=== PATIENT | male | born 1985 | race African-American/Black ===

== ENCOUNTER 2017-07-02 13:31 | Inpatient (IN) | payer OTHER, SELFPAY ==
[2017-07-02 14:51] LABS: Hematocrit 36.4 % (42.0-52.0); Red Blood Cell (RBC) Count 4.75 mill/uL (4.70-6.10); White Blood Cell (WBC) Count 8.5 thou/uL (4.8-10.8)
[2017-07-02 14:52] LABS: Prothrombin Time 20.6 SEC (12.0-14.7)
[2017-07-02 14:53] LABS: PTT 50.3 SEC (22.9-36.1)
--- NOTE | 2017-07-02 15:00 | RAD ---
RADIOGRAPH CHEST 1 VIEW: Date: 07-02-17 Time: 1:26 p.m. HISTORY: 29-year-old male with altered mental status. COMPARISON: No prior study currently available on [employer] P[facility]. FINDINGS: Cardiomediastinal silhouette is normal. No evidence of pneumothorax, pulmonary edema or effacement o f lateral costophrenic angles. Small, ill-defined faint region of mildly increased density at the ri ght lower lung zone medially. IMPRESSION: 1. Faint, ill-defined small opacity at the right medial lower lung field. Uncertain whether this a p ulmonary lesion or artifact. Recommend follow up with upright PA and lateral views when patient's co ndition allows. 2. No other potential pathology identified. HERBERT POS: [facility]
[2017-07-02 15:04] LABS: ALT (SGPT) 77 U/L (8-55); AST (SGOT) 174 U/L (5-34); Alkaline Phosphatase 65 U/L (40-150); Anion Gap 12 mmol/L (10-20); BUN (Urea Nitrogen) 52 mg/dL (8.9-20.6); CK (CPK) 1877 U/L (30-200); Calc. Creatinine Clearance 0 mL/min (70-130); Calcium 7.4 mg/dL (7.8-10.44); Carbon Dioxide 18 mmol/L (22-29); Chloride 105 mmol/L (98-107); Estimated GFR-MDRD 35; Globulin 4.7 g/dL (2.4-3.5); Protein, Total 7.7 g/dL (6.0-8.3)
[2017-07-02 15:08] LABS: Troponin I 0.049 ng/mL (< 0.028)
--- NOTE | 2017-07-02 15:10 | CT ---
CT BRAIN NONCONTRAST: HISTORY: 29-year-old male with altered mental status. FINDINGS: There is no midline shift or any other mass effect. There is no evidence of acute intracranial hemo rrhage, large cortical infarct, obstructive hydrocephalus, or extraaxial fluid collection. The calv arium is intact. Almost all of the right mastoid air cells, and the entire right mastoid antrum are opacified. There is significant partial opacification of the right middle ear cavity. IMPRESSION: 1. No acute intracranial findings. 2. Severe partial opacification of the right tympanomastoid cavity. Clinical correlation is recommen dedIván christiansen POS: [facility]
[2017-07-02 15:15] LABS: Anisocytosis SLIGHT = 6-15 cells (100X) (0-5/hpf); Band 20 % (5-11); Hypochromia SLIGHT = 6-15 cells (100X) (0-5/hpf); Mean Platelet Volume 8.7 fL (7.4-10.4); Microcytosis SLIGHT = 6-15 cells (100X) (0-5/hpf); Neutrophil 60 % (42-75); Reactive Lymphocytes 1 % (0-10)
[2017-07-02 15:16] LABS: Vacuoles SLIGHT
[2017-07-02 15:39] LABS: Bilirubin Negative (Negative); Blood, Urine Large (Negative); Glucose, Urine (Dipstick) Negative (Negative); Ketone, Urine Trace mg/dL (Negative); Nitrite Negative (Negative); Protein, Urine (Dipstick) 100 mg/dL (Neg-Trace); Urobilinogen 0.2 mg/dL (0.2-1.0)
[2017-07-02 15:41] LABS: RBC/HPF 0-3 HPF (0-3)
[2017-07-02 15:50] LABS: Bacteria/HPF 2+ HPF (None Seen); Hyaline Casts/LPF 7-10 HYALINE CAST LPF (0-3 Hyaline); Renal Epithelial None Seen HPF (0-3); Transitional Epithelial 0-3 HPF (0-3); Yeast-All Forms None Seen HPF (None Seen)
[2017-07-02] MEDS ORDERED: cefTRIAXone\\ROCEPHIN 2 GM VIAL ONE (16:31)
[2017-07-02 16:40] LABS: Amphetamine Not Detected (NotDetected); Methadone Not Detected (NotDetected); Methamphetamine Not Detected (NotDetected)
[2017-07-02] MEDS ORDERED: VANCOMYCIN IVPB PRN (16:53)
[2017-07-02] MEDS ORDERED: ACYCLOVIR IVPB PRN (16:53)
[2017-07-02 16:57] LABS: CSF, Glucose 62 mg/dl (40-70)
[2017-07-02] MEDS ORDERED: Sodium Chloride 0.9% 1,000 ML IV SCH (17:00)
--- NOTE | 2017-07-02 17:02 | PDOC.EVN ---
Event Note - Event Note Event Note: H&P: 869250 AMS 2/2 Severe Sepsis (fever, tachycardia, hypotension) * suspect meningitis * LP * Urine cx * Blood cxs; * Vanco, CTX, Acyclovir * CT brain: no intracranial abnormalities * CXR: no PNA * check CT a/p (without contrast, given RADHA) * Fall precautions * check labs in AM RADHA 2/2 Rhabdomyolysis and hypotension * start IVFs * avoid nephrotoxic agents * check renal labs in AM Demand ischemia 2/2 severe sepsis * trend cardiac enzymes * check ECHO Admit to ICU.
[2017-07-02] MEDS ORDERED: Ondansetron HCl/PF 4 MG/2 ML Vial IVP PRN (17:03)
[2017-07-02] MEDS ORDERED: Pepto Bismol Chew TAB PO PRN (17:03)
[2017-07-02 17:25] LABS: Number Cells Counted-Fluids 100
[2017-07-02] MEDS ORDERED: Vancomycin HCl 1.5 GM in Sodium Chloride 0.9% 250 ML 300 ML IVPB SCH (17:45)
[2017-07-02] MEDS ORDERED: Acyclovir Sodium 800 MG in Sodium Chloride 0.9% 250 ML 250 ML IVPB SCH (17:45)
[2017-07-02 18:16] LABS: Troponin I 0.048 ng/mL (< 0.028)
--- NOTE | 2017-07-02 18:19 | CT ---
CT ABDOMEN AND PELVIS WITHOUT CONTRAST: 07/02/17 HISTORY: Fever of unknown origin. FINDINGS: Absence of oral and IV contrast reduces the sensitivity of the exam, particularly for the evaluation of solid organs and bowel. The lung bases are clear. No free air or free fluid is seen in the abdom en or pelvis. No calcified gallstones are seen. A normal appearing appendix is noted. No calculi is seen in the kidneys, ureters, or the urinary bladder. No hydroureteronephrosis noted on either side. There is fluid in the loops of small and large bowel. The small bowel loops are not abnormally dila bill. No acute osseous abnormalities are seen. IMPRESSION: No CT evidence of urinary tract calculi or obstruction. Fluid in the small and large bowel may be du e to enteritis/colitis. POS: [facility]
[2017-07-02 18:42] VITALS: BMI 26.9
[2017-07-02] MEDS: Sodium Chloride 0.9% 1,000 ML IV SCH (19:44)
--- NOTE | 2017-07-02 20:15 | HP ---
DATE OF ADMISSION: 07/02/2017 at 5:11 p.m. CHIEF COMPLAINT: Altered mental status. HISTORY OF PRESENT ILLNESS: This is a 29-year-old male who presents with a one and half day history of altered mental status per his family. He has also had a fever at home; however, they did not us e a thermometer to check his temperature. There were also reports of vomiting, which the patient ad mitted to. Apparently, his mental status is beginning to clear since he came to the emergency room. He denies any sick contacts with similar symptoms. He denies any urinary symptoms. Also denies a ny chest pain, shortness of breath or blurry vision. He does report some neck pain that occurs with vertical and horizontal movements. REVIEW OF SYSTEMS: A 14-point review of systems is negative except as otherwise indicated above in the HPI. PAST MEDICAL HISTORY: Patient denies any past medical history. PAST SURGICAL HISTORY: No recent surgeries. FAMILY HISTORY: Reviewed and noncontributory to the presenting illness. SOCIAL HISTORY: The patient denied any tobacco, alcohol or illicit drug use. ALLERGIES TO MEDICATIONS: Reviewed. Please refer to chart for details. PHYSICAL EXAMINATION: VITAL SIGNS: Reviewed, please refer to chart for details. GENERAL: Patient was sitting comfortably in bed when I entered the room, in no acute distress, acco mpanied by 2 family members at the bedside. HEENT: Normocephalic, atraumatic. NECK: Supple, no rigidity. He does complain of some pain with passive motion vertically and horizo ntally. Extraocular movements are intact. Cranial nerves II-XII are grossly intact. CARDIOVASCULAR: S1 and S2 audible. Regular rate and rhythm. LUNGS: Clear to auscultation bilaterally with no wheezes, rales or rhonchi. ABDOMEN: Soft, nontender with positive bowel sounds. No guarding, rebound or rigidity. GENITOURINARY: No CVA tenderness bilaterally. No suprapubic tenderness either. MUSCULOSKELETAL: No calf tenderness bilaterally. EXTREMITIES: No clubbing or cyanosis of the extremities. PSYCHIATRIC: Appropriate and cooperative. NEUROLOGIC: Alert and oriented x3. Currently, he is answering questions appropriately. SKIN: Warm, dry with dry mucous membranes. LABORATORY DATA AND IMAGING: Reviewed. Please refer to chart for details. ASSESSMENT AND PLAN: This is a 29-year-old male presenting with altered mental status. 1. Altered mental status secondary to sepsis with fever, tachycardia, and hypotension. I do suspec t meningitis, LP has been ordered with samples sent. We will check urine culture and blood cultures . Start vancomycin, ceftriaxone, and acyclovir. Chest x-ray was negative for pneumonia. CT of the head does not reveal any intracranial abnormalities. I will order CT of the abdomen and pelvis wit hout contrast given acute kidney injury. We will start fall precautions and check labs in the [facility]. 2. Acute kidney injury secondary to rhabdomyolysis and hypotension. Start IV fluids, avoid nephrot oxic agents and check renal labs in the morning. 3. Demand ischemia secondary to severe sepsis. Trend cardiac enzymes and check an echocardiogram. We will admit to ICU.
[2017-07-02] MEDS: Acetaminophen 325 MG TAB PO PRN (20:48)
[2017-07-02] MEDS ORDERED: Vancomycin HCl 1 GM in Premix Bag 1 BAG IVPB SCH (21:00)
[2017-07-03 01:30] LABS: Troponin I 0.041 ng/mL (< 0.028)
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
[2017-07-03] MEDS: Sodium Chloride 0.9% 1,000 ML IV SCH ×3 (03:39→19:40)
[2017-07-03] MEDS: Acyclovir Sodium 800 MG in Sodium Chloride 0.9% 250 ML 250 ML IVPB SCH ×2 (03:40→14:32)
[2017-07-03] MEDS: cefTRIAXone\\ROCEPHIN 2 GM in Sodium Chloride 0.9% 100 ML IVPB SCH ×2 (03:40→16:56)
[2017-07-03 05:15] LABS: ALT (SGPT) 206 U/L (8-55); AST (SGOT) 413 U/L (5-34); Alkaline Phosphatase 63 U/L (40-150); Bilirubin, Direct 0.5 mg/dL (0.1-0.3); Bilirubin, Total 0.8 mg/dL (0.2-1.2); Protein, Total 7.8 g/dL (6.0-8.3)
[2017-07-03 05:21] LABS: Band 17 % (5-11); Hematocrit 37.4 % (42.0-52.0); Hypochromia SLIGHT = 6-15 cells (100X) (0-5/hpf); Mean Platelet Volume 10.8 fL (7.4-10.4); Neutrophil 65 % (42-75); Red Blood Cell (RBC) Count 4.86 mill/uL (4.70-6.10); Target Cells SLIGHT = 2-5 cells (100X) (0-1/hpf); White Blood Cell (WBC) Count 5.1 thou/uL (4.8-10.8)
[2017-07-03] MEDS ORDERED: Vancomycin HCl 1.5 GM in Sodium Chloride 0.9% 250 ML 300 ML IVPB SCH (06:00)
[2017-07-03 06:56] LABS: Anion Gap 13 mmol/L (10-20); BUN (Urea Nitrogen) 38 mg/dL (8.9-20.6); CK (CPK) 2339 U/L (30-200); Calc. Creatinine Clearance 76 mL/min (70-130); Calcium 7.3 mg/dL (7.8-10.44); Carbon Dioxide 18 mmol/L (22-29); Chloride 108 mmol/L (98-107); Estimated GFR-MDRD 53
[2017-07-03] MEDS: Acetaminophen 325 MG TAB PO PRN ×2 (08:35→20:25)
--- NOTE | 2017-07-03 09:04 | PDOC.PN ---
- Subjective Encounter Start Date: 07/03/17 Encounter Start Time: 09:02 Subjective: Awake/alert -: No confusion -: No fever currently, no cp/sob - Objective MAR Reviewed: Yes Vital Signs & Weight: Vital Signs (12 hours) Temp 07/03/17 07:00 98.6 F 07/03/17 04:00 99 F 07/02/17 23:00 98.4 F 07/02/17 22:00 99.7 F H Weight Weight 204 lb 5.896 oz Most Recent Monitor Data Heart Rate from ECG 95 NIBP 133/57 NIBP BP-Mean 77 Respiration from ECG 21 SpO2 91 I&O: 07/02/17 07/03/17 07/04/17 06:59 06:59 06:59 Intake Total 1934 Output Total 1450 350 Balance 484 -350 Result Diagrams: 07/03/17 03:22 07/03/17 03:22 Phys Exam - Physical Examination Constitutional: NAD HEENT: moist MMs, sclera anicteric Neck: no nodes, no JVD Respiratory: no wheezing, no rales, no rhonchi Cardiovascular: no significant murmur Gastrointestinal: soft, non-tender, no distention, positive bowel sounds Musculoskeletal: no edema, pulses present Neurological: non-focal, moves all 4 limbs Psychiatric: normal affect, A&O x 3 Skin: no rash, normal turgor Dx/Plan (1) Pneumococcal bacteremia Code(s): R78.81 - BACTEREMIA Status: Acute (2) Altered mental state Code(s): R41.82 - ALTERED MENTAL STATUS, UNSPECIFIED Status: Acute (3) RADHA (acute kidney injury) Code(s): N17.9 - ACUTE KIDNEY FAILURE, UNSPECIFIED Status: Acute (4) Rhabdomyolysis Code(s): M62.82 - RHABDOMYOLYSIS Status: Acute - Plan AMS 2/2 Severe Sepsis (fever, tachycardia, hypotension) 2/2 Strep pneumo bacteremia * s/p LP on 07-02-17 * Urine cx: pending * Blood cxs: 2/2 strep pneumo - f/u sensitivities and consult ID , ECHO pending * Vanco, CTX, Acyclovir * CT brain: no intracranial abnormalities * CXR: no PNA * CT a/p (without contrast, given RADHA): possible enteritis/colitis * Fall precautions * check labs in AM RADHA 2/2 Rhabdomyolysis and hypotension * continue IVFs * avoid nephrotoxic agents * check renal labs and CK in AM Demand ischemia 2/2 severe sepsis * cardiac enzymes - flat evelvation/ no chest pain * ECHO to look for wall motion abnormalities: pending Dispo: Continue inpt.
[2017-07-03 17:37] LABS: Vancomycin, Random 13.7 ug/mL (See Comment)
[2017-07-03] MEDS ORDERED: FLU VACC QS2017-18 36 mo. & older 0.5 ML SYRINGE IM ONE (21:00)
[2017-07-04] MEDS: HYDROcodone/Acetaminophen 5/325 mg Tablet PO PRN ×3 (01:58→20:48)
[2017-07-04] MEDS: cefTRIAXone\\ROCEPHIN 2 GM in Sodium Chloride 0.9% 100 ML IVPB SCH ×2 (04:05→16:48)
[2017-07-04] MEDS: Sodium Chloride 0.9% 1,000 ML IV SCH ×4 (04:05→19:00)
[2017-07-04 05:11] LABS: Anion Gap 8 mmol/L (10-20); BUN (Urea Nitrogen) 19 mg/dL (8.9-20.6); CK (CPK) 892 U/L (30-200); Calc. Creatinine Clearance 116 mL/min (70-130); Calcium 7.3 mg/dL (7.8-10.44); Carbon Dioxide 22 mmol/L (22-29); Chloride 111 mmol/L (98-107); Estimated GFR-MDRD 85
[2017-07-04 05:14] LABS: ALT (SGPT) 166 U/L (8-55); AST (SGOT) 217 U/L (5-34); Alkaline Phosphatase 48 U/L (40-150); Bilirubin, Direct 0.3 mg/dL (0.1-0.3); Bilirubin, Total 0.5 mg/dL (0.2-1.2); Protein, Total 6.9 g/dL (6.0-8.3)
[2017-07-04 05:28] LABS: Band 12 % (5-11); Hematocrit 32.5 % (42.0-52.0); Mean Platelet Volume 11.2 fL (7.4-10.4); Neutrophil 66 % (42-75); Red Blood Cell (RBC) Count 4.18 mill/uL (4.70-6.10); White Blood Cell (WBC) Count 5.4 thou/uL (4.8-10.8)
--- NOTE | 2017-07-04 05:58 | CON ---
DATE OF CONSULTATION: 07/03/2017 REASON FOR CONSULTATION: Bacteremia and sepsis. HISTORY OF PRESENT ILLNESS: A 31-year-old first admission to this hospital, who was in his usual state of health until about a week before when he developed hearing loss on the right side. Then he noticed what he describes as the sensation of pulsation in the mid lower sternal area, which progressively became worse. Eventually, patient developed fever and was found disoriented by family members and brought to the emergency room for management. On arrival, he had temperature of 102. Initially, was somewhat confused, but the admitting physician first saw him and he appeared to be comfortable, sitting in bed, in no distress. The neck was supple. The lungs were clear. Heart exam normal and the abdomen was normal. Initial lab data showed white cell count was 8.5 with hemoglobin 11.7 and 20% bands. INR is 1.7. Sodium 135, creatinine was elevated 2.63. His AST was 413, ALT 206, CK was 2300. Albumin 3.0. Urinalysis with 11-20 wbc's, alkaline phosphatase 65. The patient had 2 sets of blood cultures and both sets are positive for Streptococcus pneumoniae and patient had a spinal fluid evaluation. The spinal fluid showed a normal glucose and protein and 40 wbc's, but there is still rbc's and this is in the 4th vial, so most likely there was some element of contamination of the sample by blood from the venous plexus around the area of the puncture. The CSF sample is also yielding A Streptococcus pneumoniae. PAST MEDICAL HISTORY: Negative. PAST SURGICAL HISTORY: Negative. FAMILY HISTORY: Noncontributory. SOCIAL HISTORY: Lives with mother, never smoker. No illicit drug use. ALLERGIES: None. PHYSICAL EXAMINATION: VITAL SIGNS: Here show a T-max 102.5, is currently afebrile. Blood pressure 101/57, pulse 86, respirations 16 to 21, O2 sat 94%. SKIN: Normal, no lymphadenopathy. HEENT: Ocular movements are conjugate. Pupils are equal and reactive. Right ear with bulging and tympanic membrane with purulence under it. The left tympanic membrane is normal. Nasal passages were normal. Oral cavity is normal. NECK: Supple. No jugular venous distention. LUNGS: Clear to auscultation and percussion. CARDIOVASCULAR: S1, S2, regular rate. No S3 or S4. ABDOMEN: Soft, not distended or tender. No ascites. No bladder distention. : No genital abnormalities. EXTREMITIES: No joint inflammatory activity. NEUROLOGIC: Nonfocal. LABORATORY DATA: The followup labs showed white cell count 5.1, hemoglobin 12, platelets 47,000, 13% lymphocytes. Total lymphocyte count around 600. ASSESSMENT AND PLAN: 1. Otitis media. 2. Strep pneumoniae bacteremia. 3. Toxic metabolic encephalopathy secondary to above. DISCUSSION: Patient most likely had otitis media with bacteremia. The chest findings are not yet clear, the origin of them and his chest x-ray showed an opacity in the right medial lower lung field, so maybe he was starting with a lesion there. We will go ahead and repeat chest x-ray to evaluate he does have severe lymphocytopenia and we will check his HIV serology as well, particularly in the face of strep pneumo bacteremia and other epi features. Continue Rocephin alone. Discontinue droplet precautions. May need myringotomy or ENT evaluation. MTDD
--- NOTE | 2017-07-04 13:39 | PDOC.PN ---
- Subjective Encounter Start Date: 07/04/17 Encounter Start Time: 09:00 Pt seen for followup re: bacteremia. Denies chest pain, shortness of breath, fevers or chills. - Objective MAR Reviewed: Yes Vital Signs & Weight: Vital Signs (12 hours) Temp Pulse Resp Pulse Ox 07/04/17 08:00 98.6 F 68 17 97 07/04/17 04:00 98.7 F Weight Admit Weight 204 lb Weight 204 lb 5.896 oz Most Recent Monitor Data Heart Rate from ECG 77 NIBP 115/60 NIBP BP-Mean 101 Respiration from ECG 18 SpO2 94 I&O: 07/03/17 07/04/17 07/05/17 06:59 06:59 06:59 Intake Total 1934 4509 1121 Output Total 1450 1450 650 Balance 484 3059 471 Result Diagrams: 07/04/17 04:00 07/04/17 04:00 EKG Reviewed by me: Yes (Tele: NSR) Dx/Plan (1) Pneumococcal bacteremia Code(s): R78.81 - BACTEREMIA Status: Acute (2) Rhabdomyolysis Code(s): M62.82 - RHABDOMYOLYSIS Status: Acute (3) Abnormal LFTs Code(s): R79.89 - OTHER SPECIFIED ABNORMAL FINDINGS OF BLOOD CHEMISTRY Status : Acute (4) Elevated troponin Code(s): R74.8 - ABNORMAL LEVELS OF OTHER SERUM ENZYMES Status: Acute (5) Altered mental state Code(s): R41.82 - ALTERED MENTAL STATUS, UNSPECIFIED Status: Resolved (6) RADHA (acute kidney injury) Code(s): N17.9 - ACUTE KIDNEY FAILURE, UNSPECIFIED Status: Resolved - Plan continue antibiotics, out of bed/ambulate * . TTE report noted. HIV1 confirmatory test pending (initial screen presumptive). Abnormal LFTs likely due to rhabdomyolysis. Review of Systems - Review of Systems Constitutional: negative: Fever, Chills, Sweats, Weakness, Malaise Respiratory: negative: Cough, Dry, Shortness of Breath, Hemoptysis, SOB with Excertion, Pleuritic Pain, Sputum, Wheezing Cardiovascular: negative: Chest Pain, Palpitations, Orthopnea, Paroxysmal Noc. Dyspnea, Edema, Light Headedness Gastrointestinal: negative: Nausea, Vomiting, Abdominal Pain, Diarrhea, Constipation, Melena, Hematochezia Genitourinary: negative: Dysuria, Frequency, Incontinence, Hematuria, Retention - Medications/Allergies Allergies/Adverse Reactions: Allergies Allergy/AdvReac Type Severity Reaction Status Date / Time No Known Drug Allergies Allergy Unverified 07/02/17 17:30 Medications: Current Medications Acetaminophen (Tylenol) 650 mg PO Q6H PRN PRN Reason: FEVER > 101 Last Admin: 07/03/17 20:25 Dose: 650 mg Hydrocodone Bitart/Acetaminophen ([place] 5/325) 1 tab PO Q6H PRN PRN Reason: Pain Last Admin: 07/04/17 12:10 Dose: 1 tab Bismuth Subsalicylate (Pepto Bismol) 2 tab PO Q1H PRN PRN Reason: Diarrhea/Loose Stools Ceftriaxone Sodium 2 gm/ (Sodium Chloride) 100 mls @ 200 mls/hr IVPB 0400,1600 [facility] Last Admin: 07/04/17 04:05 Dose: 100 mls Sodium Chloride (Normal Saline 0.9%) 1,000 mls @ 150 mls/hr IV .Q6H40M [facility] Last Admin: 07/04/17 12:15 Dose: 1,000 mls Ondansetron HCl (Zofran) 4 mg IVP Q6H PRN PRN Reason: Nausea/Vomiting Last Admin: 07/03/17 08:22 Dose: 4 mg Sodium Chloride (Flush - Normal Saline) 10 ml IVF Q12HR [facility] Last Admin: 07/04/17 09:33 Dose: Not Given Sodium Chloride (Flush - Normal Saline) 10 ml IVF PRN PRN PRN Reason: Saline Flush
[2017-07-05] MEDS: Sodium Chloride 0.9% 1,000 ML IV SCH ×4 (01:27→20:11)
[2017-07-05] MEDS: cefTRIAXone\\ROCEPHIN 2 GM in Sodium Chloride 0.9% 100 ML IVPB SCH ×2 (04:19→16:13)
[2017-07-05 04:36] LABS: ALT (SGPT) 130 U/L (8-55); AST (SGOT) 130 U/L (5-34); Alkaline Phosphatase 50 U/L (40-150); Bilirubin, Direct 0.3 mg/dL (0.1-0.3); Bilirubin, Total 0.7 mg/dL (0.2-1.2); Protein, Total 6.8 g/dL (6.0-8.3)
[2017-07-05 05:01] LABS: Anion Gap 8 mmol/L (10-20); BUN (Urea Nitrogen) 11 mg/dL (8.9-20.6); CK (CPK) 243 U/L (30-200); Calc. Creatinine Clearance 139 mL/min (70-130); Calcium 7.9 mg/dL (7.8-10.44); Carbon Dioxide 24 mmol/L (22-29); Chloride 109 mmol/L (98-107); Estimated GFR-MDRD Greater than 90
[2017-07-05 05:27] LABS: Band 8 % (5-11); Hematocrit 32.6 % (42.0-52.0); Hypochromia SLIGHT = 6-15 cells (100X) (0-5/hpf); Mean Platelet Volume 11.3 fL (7.4-10.4); Metamyelocyte 1 % (0-0); Microcytosis SLIGHT = 6-15 cells (100X) (0-5/hpf); Neutrophil 63 % (42-75); Reactive Lymphocytes 3 % (0-10); Red Blood Cell (RBC) Count 4.16 mill/uL (4.70-6.10); White Blood Cell (WBC) Count 9.4 thou/uL (4.8-10.8)
--- NOTE | 2017-07-05 13:06 | PDOC.PN ---
- Subjective Encounter Start Date: 07/05/17 Encounter Start Time: 09:40 Pt seen for followup re: bacteremia, denies chest pain. Reports generalized weakness. No nausea or vomiting. - Objective MAR Reviewed: Yes Vital Signs & Weight: Vital Signs (12 hours) Temp Pulse Resp Pulse Ox 07/05/17 08:00 98.7 F 68 16 97 Weight Admit Weight 204 lb Weight 204 lb 5.896 oz Most Recent Monitor Data Heart Rate from ECG 79 NIBP 126/72 NIBP BP-Mean 83 Respiration from ECG 19 SpO2 94 I&O: 07/04/17 07/05/17 07/06/17 06:59 06:59 06:59 Intake Total 4509 5859 838 Output Total 1450 2995 480 Balance 3059 2864 358 Result Diagrams: 07/05/17 03:52 07/05/17 03:52 EKG Reviewed by me: Yes (Tele: NSR) Phys Exam - Physical Examination Constitutional: NAD HEENT: moist MMs, sclera anicteric, oral pharynx no lesions Neck: supple Respiratory: no wheezing, no rales, no rhonchi, clear to auscultation bilateral Cardiovascular: RRR, no significant murmur, no rub Gastrointestinal: soft, non-tender, no distention, positive bowel sounds Musculoskeletal: pulses present Neurological: moves all 4 limbs Lymphatic: no nodes Psychiatric: normal affect, A&O x 3 Skin: no rash, normal turgor, cap refill <2 seconds Dx/Plan (1) Pneumococcal bacteremia Code(s): R78.81 - BACTEREMIA Status: Acute (2) Rhabdomyolysis Code(s): M62.82 - RHABDOMYOLYSIS Status: Acute (3) Abnormal LFTs Code(s): R79.89 - OTHER SPECIFIED ABNORMAL FINDINGS OF BLOOD CHEMISTRY Status : Acute (4) Elevated troponin Code(s): R74.8 - ABNORMAL LEVELS OF OTHER SERUM ENZYMES Status: Acute (5) Altered mental state Code(s): R41.82 - ALTERED MENTAL STATUS, UNSPECIFIED Status: Resolved - Plan continue antibiotics, PT/OT, out of bed/ambulate, DVT proph w/lovenox, DVT proph w/SCDs * . HIV confirmatory test pending. Continue IV ceftriaxone. Discontinue IV fluids, check LFTs and CK. Transfer to medical floor. Diet as tolerated. Review of Systems - Review of Systems Constitutional: Weakness. negative: Fever, Chills, Sweats, Malaise ENT: negative: Ear Pain, Ear Discharge, Nose Pain, Nose Discharge, Nose Congestion, Mouth Pain, Mouth Swelling, Throat Pain, Throat Swelling Respiratory: negative: Cough, Dry, Shortness of Breath, Hemoptysis, SOB with Excertion, Pleuritic Pain, Sputum, Wheezing Cardiovascular: negative: Chest Pain, Palpitations, Orthopnea, Paroxysmal Noc. Dyspnea, Edema, Light Headedness Gastrointestinal: negative: Nausea, Vomiting, Abdominal Pain, Diarrhea, Constipation, Melena, Hematochezia Genitourinary: negative: Dysuria, Frequency, Incontinence, Hematuria, Retention - Medications/Allergies Allergies/Adverse Reactions: Allergies Allergy/AdvReac Type Severity Reaction Status Date / Time No Known Drug Allergies Allergy Unverified 07/02/17 17:30 Medications: Current Medications Acetaminophen (Tylenol) 650 mg PO Q6H PRN PRN Reason: FEVER > 101 Last Admin: 07/03/17 20:25 Dose: 650 mg Hydrocodone Bitart/Acetaminophen ([place] 5/325) 1 tab PO Q6H PRN PRN Reason: Pain Last Admin: 07/04/17 20:48 Dose: 1 tab Bismuth Subsalicylate (Pepto Bismol) 2 tab PO Q1H PRN PRN Reason: Diarrhea/Loose Stools Ceftriaxone Sodium 2 gm/ (Sodium Chloride) 100 mls @ 200 mls/hr IVPB 0400,1600 [facility] Last Admin: 07/05/17 04:19 Dose: 100 mls Sodium Chloride (Normal Saline 0.9%) 1,000 mls @ 150 mls/hr IV .Q6H40M [facility] Last Admin: 07/05/17 01:27 Dose: 1,000 mls Ondansetron HCl (Zofran) 4 mg IVP Q6H PRN PRN Reason: Nausea/Vomiting Last Admin: 07/03/17 08:22 Dose: 4 mg Sodium Chloride (Flush - Normal Saline) 10 ml IVF Q12HR [facility] Last Admin: 07/04/17 20:51 Dose: 10 ml Sodium Chloride (Flush - Normal Saline) 10 ml IVF PRN PRN PRN Reason: Saline Flush
[2017-07-05] MEDS: HYDROcodone/Acetaminophen 5/325 mg Tablet PO PRN (16:55)
[2017-07-05 23:10] LABS: HSV 1 - DNA Negative (Negative)
[2017-07-06] MEDS: HYDROcodone/Acetaminophen 5/325 mg Tablet PO PRN ×3 (00:01→22:29)
[2017-07-06] MEDS: Sodium Chloride 0.9% 1,000 ML IV SCH (01:00)
[2017-07-06] MEDS: cefTRIAXone\\ROCEPHIN 2 GM in Sodium Chloride 0.9% 100 ML IVPB SCH ×2 (03:52→16:05)
[2017-07-06 05:00] LABS: ALT (SGPT) 95 U/L (8-55); AST (SGOT) 77 U/L (5-34); Alkaline Phosphatase 53 U/L (40-150); Bilirubin, Direct 0.3 mg/dL (0.1-0.3); Bilirubin, Total 0.7 mg/dL (0.2-1.2); Protein, Total 6.7 g/dL (6.0-8.3)
[2017-07-06 05:03] LABS: Anion Gap 10 mmol/L (10-20); BUN (Urea Nitrogen) 9 mg/dL (8.9-20.6); CK (CPK) 78 U/L (30-200); Calc. Creatinine Clearance 148 mL/min (70-130); Calcium 8.3 mg/dL (7.8-10.44); Carbon Dioxide 23 mmol/L (22-29); Chloride 109 mmol/L (98-107); Estimated GFR-MDRD Greater than 90
[2017-07-06 05:09] LABS: Band 8 % (5-11); Hypochromia MODERATE=16-30 cells (100X) (0-5/hpf); Mean Platelet Volume 10.6 fL (7.4-10.4); Microcytosis SLIGHT = 6-15 cells (100X) (0-5/hpf); Neutrophil 66 % (42-75); Target Cells MODERATE= 6-15 cells (100X) (0-1/hpf); White Blood Cell (WBC) Count 11.6 thou/uL (4.8-10.8)
[2017-07-06] MEDS ORDERED: Chloraseptic Spray 180 ml Bottle PO PRN (07:59)
[2017-07-06] MEDS ORDERED: Artificial Tears 18 DROP/0.9 ML EA EYE PRN (07:59)
[2017-07-06] MEDS ORDERED: Ondansetron ODT 4 MG TAB PO PRN (07:59)
[2017-07-06] MEDS ORDERED: Eucerin (Mineral Oil/Petrolatum,White) 30 gm Jar TOP PRN (07:59)
[2017-07-06] MEDS ORDERED: Diabetic Tussin 200 MG/10 ML UDCUP PO PRN (07:59)
[2017-07-06] MEDS ORDERED: Loratadine 10 MG TAB PO PRN (07:59)
[2017-07-06] MEDS ORDERED: hydrALAZINE 20 MG/ML VIAL SLOW IVP PRN (07:59)
[2017-07-06] MEDS ORDERED: Mag-Al 1200 mg/1200 mg/30 ML UDCUP PO PRN (07:59)
[2017-07-06] MEDS ORDERED: Milk Of Magnesia 30 ML UDCUP PO PRN (07:59)
[2017-07-06] MEDS ORDERED: Zolpidem Tartrate 5 MG TAB PO PRN (07:59)
[2017-07-06] MEDS ORDERED: Senokot 8.6 MG TAB PO PRN (07:59)
[2017-07-06] MEDS ORDERED: Sodium Chloride 0.65% Nasal 44 ML BOT EA NARE PRN (07:59)
[2017-07-06] MEDS ORDERED: Enoxaparin Sodium 40 MG/0.4 ML SYRINGE SC SCH (09:00)
[2017-07-06] MEDS: Folic Acid 1 MG TAB PO SCH (09:26)
[2017-07-06] MEDS: Multivitamin W/ Minerals 1 TAB PO SCH (09:26)
[2017-07-06] MEDS: Famotidine 20 MG TAB PO SCH ×2 (09:26→20:08)
[2017-07-06 10:14] LABS: HIV 1 Antibody Multi-Spot Positive (Negative); HIV 2 Antibody Multi-Spot Negative (Negative)
--- NOTE | 2017-07-06 11:21 | PDOC.PN ---
- Subjective Encounter Start Date: 07/06/17 Encounter Start Time: 08:45 Patient seen and examined. feels weak and bodyache. No overnight events - Objective MAR Reviewed: Yes Vital Signs & Weight: Vital Signs (12 hours) Temp Pulse Resp BP Pulse Ox 07/06/17 08:22 98.4 F 73 16 124/80 93 L 07/06/17 08:00 98.4 F 73 16 99 Weight Admit Weight 204 lb Weight 204 lb 5.896 oz Most Recent Monitor Data Heart Rate from ECG 79 NIBP 126/72 NIBP BP-Mean 83 Respiration from ECG 19 SpO2 94 I&O: 07/05/17 07/06/17 07/07/17 06:59 06:59 06:59 Intake Total 5859 1198 240 Output Total 2995 880 Balance 2864 318 240 Result Diagrams: 07/06/17 03:54 07/06/17 03:54 Phys Exam - Physical Examination Constitutional: NAD HEENT: PERRLA, moist MMs, sclera anicteric Neck: no JVD, supple Respiratory: no wheezing, no rales, no rhonchi Cardiovascular: RRR, no significant murmur, no rub Gastrointestinal: soft, non-tender, no distention, positive bowel sounds Musculoskeletal: no edema, pulses present Neurological: non-focal, normal sensation, moves all 4 limbs Psychiatric: normal affect, A&O x 3 Skin: no rash, normal turgor Dx/Plan (1) Abnormal LFTs Code(s): R79.89 - OTHER SPECIFIED ABNORMAL FINDINGS OF BLOOD CHEMISTRY Status : Acute (2) Acute kidney failure Status: Acute (3) Bacteremia due to Streptococcus pneumoniae Code(s): R78.81 - BACTEREMIA Status: Acute (4) Coagulopathy Status: Acute (5) Demand ischemia of myocardium Code(s): I24.8 - OTHER FORMS OF ACUTE ISCHEMIC HEART DISEASE Status: Acute (6) Encephalopathy acute Code(s): G93.40 - ENCEPHALOPATHY, UNSPECIFIED Status: Acute (7) HIV (human immunodeficiency virus infection) Status: Acute (8) Microcytic anemia Code(s): D50.9 - IRON DEFICIENCY ANEMIA, UNSPECIFIED Status: Acute (9) Rhabdomyolysis Code(s): M62.82 - RHABDOMYOLYSIS Status: Acute (10) Right acute suppurative otitis media Code(s): H66.001 - ACUTE SUPPR OTITIS MEDIA W/O SPON RUPT EAR DRUM, RIGHT EAR Status: Acute (11) Sepsis with acute organ dysfunction Code(s): A41.9 - SEPSIS, UNSPECIFIED ORGANISM; R65.20 - SEVERE SEPSIS WITHOUT SEPTIC SHOCK Status: Acute (12) Thrombocytopenia Code(s): D69.6 - THROMBOCYTOPENIA, UNSPECIFIED Status: Acute - Plan cont current plan of care, continue antibiotics * renal function improved, so dc ivf * platelet low, so hold lovenox and ambulate pt * continue rocephin * repeat labs tomorrow * pt is already known HIV per pt * medication reviewed as below * symptomatic treatment * will do repeat blood culture tomorrow * ? CSF is positive with strep * will consult ENT * ID following. Review of Systems - Review of Systems ENT: Ear Pain Respiratory: negative: Cough, Dry, Shortness of Breath, Hemoptysis, SOB with Excertion, Pleuritic Pain, Sputum, Wheezing Cardiovascular: negative: Chest Pain, Palpitations, Orthopnea, Paroxysmal Noc. Dyspnea, Edema, Light Headedness, Other Gastrointestinal: negative: Nausea, Vomiting, Abdominal Pain, Diarrhea, Constipation, Melena, Hematochezia, Other Genitourinary: negative: Dysuria, Frequency, Incontinence, Hematuria, Retention , Other Musculoskeletal: negative: Neck Pain, Shoulder Pain, Arm Pain, Back Pain, Hand Pain, Leg Pain, Foot Pain, Other Skin: negative: Rash, Lesions, Chacorta, Bruising, Other - Medications/Allergies Allergies/Adverse Reactions: Allergies Allergy/AdvReac Type Severity Reaction Status Date / Time No Known Drug Allergies Allergy Unverified 07/02/17 17:30 Medications: Current Medications Acetaminophen (Tylenol) 650 mg PO Q6H PRN PRN Reason: FEVER > 101 Last Admin: 07/03/17 20:25 Dose: 650 mg Hydrocodone Bitart/Acetaminophen ([place] 5/325) 1 tab PO Q6H PRN PRN Reason: Pain Last Admin: 07/06/17 00:01 Dose: 1 tab Al Hydroxide/Mg Hydroxide (Maalox) 15 ml PO Q4H PRN PRN Reason: Heartburn or Indigestion Artificial Tears (Tears Naturale) 0 drop EA EYE PRN PRN PRN Reason: Dry Eyes Bismuth Subsalicylate (Pepto Bismol) 2 tab PO Q1H PRN PRN Reason: Diarrhea/Loose Stools Famotidine (Pepcid) 20 mg PO BID [facility] Last Admin: 07/06/17 09:26 Dose: 20 mg [facility] Folic Acid (Folvite) 1 mg PO DAILY [facility] Last Admin: 07/06/17 09:26 Dose: 1 mg Guaifenesin (Robitussin Sf) 200 mg PO Q4H PRN PRN Reason: Cough Hydralazine HCl (Apresoline) 10 mg SLOW IVP Q4H PRN PRN Reason: Systolic BP > 180 Ceftriaxone Sodium 2 gm/ (Sodium Chloride) 100 mls @ 200 mls/hr IVPB 0400,1600 [facility] Last Admin: 07/06/17 03:52 Dose: 100 mls Iron/Minerals/Multivitamins (Theragran M) 1 tab PO DAILY [facility] Last Admin: 07/06/17 09:26 Dose: 1 tab Loratadine (Claritin) 10 mg PO DAILYPRN PRN PRN Reason: Sinus Symptoms Magnesium Hydroxide (Milk Of Magnesium) 30 ml PO DAILYPRN PRN PRN Reason: Constipation Mineral Oil/White Petrolatum (Eucerin Cream) 0 gm TOP BIDPRN PRN PRN Reason: Dry Skin Ondansetron HCl (Zofran) 4 mg IVP Q6H PRN PRN Reason: Nausea/Vomiting Last Admin: 07/03/17 08:22 Dose: 4 mg Ondansetron HCl (Zofran Odt) 4 mg PO Q6H PRN PRN Reason: Nausea/Vomiting Phenol (Chloraseptic [place] 180 Ml Bot) 0 ml PO PRN PRN PRN Reason: Sore Throat Senna (Senokot) 2 tab PO HSPRN PRN PRN Reason: Constipation Sodium Chloride (Flush - Normal Saline) 10 ml IVF Q12HR [facility] Last Admin: 07/06/17 07:55 Dose: Not Given Sodium Chloride (Flush - Normal Saline) 10 ml IVF PRN PRN PRN Reason: Saline Flush Sodium Chloride ([place] Nasal [place] 0.65%) 0 ml EA NARE QIDPRN PRN PRN Reason: Nasal Congestion Zolpidem Tartrate (Ambien) 5 mg PO HSPRN PRN PRN Reason: Insomnia
[2017-07-06] MEDS: Ferrous Sulfate 325 MG TAB PO SCH (16:06)
[2017-07-07] MEDS: cefTRIAXone\\ROCEPHIN 2 GM in Sodium Chloride 0.9% 100 ML IVPB SCH ×2 (03:51→15:53)
[2017-07-07 05:43] LABS: Anion Gap 10 mmol/L (10-20); BUN (Urea Nitrogen) 11 mg/dL (8.9-20.6); Calc. Creatinine Clearance 158 mL/min (70-130); Calcium 8.5 mg/dL (7.8-10.44); Carbon Dioxide 25 mmol/L (22-29); Chloride 104 mmol/L (98-107); Estimated GFR-MDRD Greater than 90
[2017-07-07 06:07] LABS: Band 2 % (5-11); Hematocrit 31.8 % (42.0-52.0); Mean Platelet Volume 9.7 fL (7.4-10.4); Microcytosis SLIGHT = 6-15 cells (100X) (0-5/hpf); Neutrophil 74 % (42-75); Red Blood Cell (RBC) Count 4.04 mill/uL (4.70-6.10); Target Cells MODERATE= 6-15 cells (100X) (0-1/hpf); White Blood Cell (WBC) Count 9.5 thou/uL (4.8-10.8)
[2017-07-07] MEDS ORDERED: Potassium Chloride 20 MEQ TAB PO SCH (08:00)
[2017-07-07] MEDS: Famotidine 20 MG TAB PO SCH ×2 (08:21→21:36)
[2017-07-07] MEDS: Folic Acid 1 MG TAB PO SCH (08:21)
[2017-07-07] MEDS: Multivitamin W/ Minerals 1 TAB PO SCH (08:21)
[2017-07-07] MEDS: Ferrous Sulfate 325 MG TAB PO SCH ×2 (08:21→16:38)
--- NOTE | 2017-07-07 12:17 | PDOC.PN ---
- Subjective Encounter Start Date: 07/07/17 Encounter Start Time: 09:30 Patient seen and examined. No new complaints. No overnight events - Objective MAR Reviewed: Yes Vital Signs & Weight: Vital Signs (12 hours) Temp Pulse Resp BP Pulse Ox 07/07/17 08:00 98.3 F 72 18 153/83 H 95 Weight Admit Weight 204 lb Weight 204 lb 5.896 oz Most Recent Monitor Data Heart Rate from ECG 79 NIBP 126/72 NIBP BP-Mean 83 Respiration from ECG 19 SpO2 94 I&O: 07/06/17 07/07/17 07/08/17 06:59 06:59 06:59 Intake Total 1198 720 Output Total 880 550 Balance 318 170 Result Diagrams: 07/07/17 04:43 07/07/17 04:43 Phys Exam - Physical Examination Constitutional: NAD HEENT: PERRLA, moist MMs, sclera anicteric Neck: no JVD, supple Respiratory: no wheezing, no rales, no rhonchi Cardiovascular: RRR, no significant murmur, no rub Gastrointestinal: soft, non-tender, no distention, positive bowel sounds Musculoskeletal: no edema, pulses present Neurological: non-focal, normal sensation, moves all 4 limbs Lymphatic: no nodes Psychiatric: normal affect, A&O x 3 Skin: no rash, normal turgor Dx/Plan (1) Abnormal LFTs Code(s): R79.89 - OTHER SPECIFIED ABNORMAL FINDINGS OF BLOOD CHEMISTRY Status : Acute (2) Acute kidney failure Status: Acute (3) Bacteremia due to Streptococcus pneumoniae Code(s): R78.81 - BACTEREMIA Status: Acute (4) Coagulopathy Status: Acute (5) Demand ischemia of myocardium Code(s): I24.8 - OTHER FORMS OF ACUTE ISCHEMIC HEART DISEASE Status: Acute (6) Encephalopathy acute Code(s): G93.40 - ENCEPHALOPATHY, UNSPECIFIED Status: Acute (7) HIV (human immunodeficiency virus infection) Status: Acute (8) Microcytic anemia Code(s): D50.9 - IRON DEFICIENCY ANEMIA, UNSPECIFIED Status: Acute (9) Rhabdomyolysis Code(s): M62.82 - RHABDOMYOLYSIS Status: Acute (10) Right acute suppurative otitis media Code(s): H66.001 - ACUTE SUPPR OTITIS MEDIA W/O SPON RUPT EAR DRUM, RIGHT EAR Status: Acute (11) Sepsis with acute organ dysfunction Code(s): A41.9 - SEPSIS, UNSPECIFIED ORGANISM; R65.20 - SEVERE SEPSIS WITHOUT SEPTIC SHOCK Status: Acute (12) Thrombocytopenia Code(s): D69.6 - THROMBOCYTOPENIA, UNSPECIFIED Status: Acute - Plan cont current plan of care, continue antibiotics * continue rocephin * pt is clinically improving * ENT to see him today or tomorrow * Dr Morillo following * follow on repeat blood culture * consider discharge when consultants are ok * may be ok with oral antibiotics on discharge but will discuss with ID about that * medication reviewed as below * symptomatic treatment. Review of Systems - Review of Systems ENT: Ear Pain. negative: Ear Discharge, Nose Pain, Nose Discharge, Nose Congestion, Mouth Pain, Mouth Swelling, Throat Pain, Throat Swelling, Other Respiratory: negative: Cough, Dry, Shortness of Breath, Hemoptysis, SOB with Excertion, Pleuritic Pain, Sputum, Wheezing Cardiovascular: negative: Chest Pain, Palpitations, Orthopnea, Paroxysmal Noc. Dyspnea, Edema, Light Headedness, Other Gastrointestinal: negative: Nausea, Vomiting, Abdominal Pain, Diarrhea, Constipation, Melena, Hematochezia, Other Genitourinary: negative: Dysuria, Frequency, Incontinence, Hematuria, Retention , Other Musculoskeletal: negative: Neck Pain, Shoulder Pain, Arm Pain, Back Pain, Hand Pain, Leg Pain, Foot Pain, Other - Medications/Allergies Allergies/Adverse Reactions: Allergies Allergy/AdvReac Type Severity Reaction Status Date / Time No Known Drug Allergies Allergy Verified 07/07/17 03:49 Medications: Current Medications Acetaminophen (Tylenol) 650 mg PO Q6H PRN PRN Reason: FEVER > 101 Last Admin: 07/03/17 20:25 Dose: 650 mg Hydrocodone Bitart/Acetaminophen ([place] 5/325) 1 tab PO Q6H PRN PRN Reason: Pain Last Admin: 07/06/17 22:29 Dose: 1 tab Al Hydroxide/Mg Hydroxide (Maalox) 15 ml PO Q4H PRN PRN Reason: Heartburn or Indigestion Artificial Tears (Tears Naturale) 0 drop EA EYE PRN PRN PRN Reason: Dry Eyes Bismuth Subsalicylate (Pepto Bismol) 2 tab PO Q1H PRN PRN Reason: Diarrhea/Loose Stools Famotidine (Pepcid) 20 mg PO BID [facility] Last Admin: 07/07/17 08:21 Dose: 20 mg Ferrous Sulfate (Feosol) 325 mg PO BID[facility] Last Admin: 07/07/17 08:21 Dose: 325 mg Folic Acid (Folvite) 1 mg PO DAILY [facility] Last Admin: 07/07/17 08:21 Dose: 1 mg Guaifenesin (Robitussin Sf) 200 mg PO Q4H PRN PRN Reason: Cough Hydralazine HCl (Apresoline) 10 mg SLOW IVP Q4H PRN PRN Reason: Systolic BP > 180 Ceftriaxone Sodium 2 gm/ (Sodium Chloride) 100 mls @ 200 mls/hr IVPB 0400,1600 [facility] Last Admin: 07/07/17 03:51 Dose: 100 mls Iron/Minerals/Multivitamins (Theragran M) 1 tab PO DAILY [facility] Last Admin: 07/07/17 08:21 Dose: 1 tab Loratadine (Claritin) 10 mg PO DAILYPRN PRN PRN Reason: Sinus Symptoms Magnesium Hydroxide (Milk Of Magnesium) 30 ml PO DAILYPRN PRN PRN Reason: Constipation Mineral Oil/White Petrolatum (Eucerin Cream) 0 gm TOP BIDPRN PRN PRN Reason: Dry Skin Ondansetron HCl (Zofran) 4 mg IVP Q6H PRN PRN Reason: Nausea/Vomiting Last Admin: 07/03/17 08:22 Dose: 4 mg Ondansetron HCl (Zofran Odt) 4 mg PO Q6H PRN PRN Reason: Nausea/Vomiting Phenol (Chloraseptic [place] 180 Ml Bot) 0 ml PO PRN PRN PRN Reason: Sore Throat Senna (Senokot) 2 tab PO HSPRN PRN PRN Reason: Constipation Sodium Chloride (Flush - Normal Saline) 10 ml IVF Q12HR [facility] Last Admin: 07/07/17 08:22 Dose: 10 ml Sodium Chloride (Flush - Normal Saline) 10 ml IVF PRN PRN PRN Reason: Saline Flush Sodium Chloride ([place] Nasal [place] 0.65%) 0 ml EA NARE QIDPRN PRN PRN Reason: Nasal Congestion Zolpidem Tartrate (Ambien) 5 mg PO HSPRN PRN PRN Reason: Insomnia
[2017-07-07] MEDS: HYDROcodone/Acetaminophen 5/325 mg Tablet PO PRN (21:36)
[2017-07-08] MEDS: cefTRIAXone\\ROCEPHIN 2 GM in Sodium Chloride 0.9% 100 ML IVPB SCH ×2 (04:26→15:45)
[2017-07-08 04:48] LABS: #Eosinphils 0.1 thou/uL (0.0-0.7); #Neutrophils 4.7 thou/uL (1.40-6.50); %Basophils 0.5 % (0.0-1.0); %Eosinophils 1.1 % (0.0-10.0); %Lymphocytes 25.8 % (21.0-51.0); %Monocytes 12.8 % (0.0-10.0); Hematocrit 31.9 % (42.0-52.0); Red Blood Cell (RBC) Count 4.08 mill/uL (4.70-6.10); White Blood Cell (WBC) Count 7.9 thou/uL (4.8-10.8)
[2017-07-08 05:05] LABS: Anion Gap 8 mmol/L (10-20); BUN (Urea Nitrogen) 12 mg/dL (8.9-20.6); Calc. Creatinine Clearance 157 mL/min (70-130); Calcium 8.5 mg/dL (7.8-10.44); Carbon Dioxide 27 mmol/L (22-29); Chloride 104 mmol/L (98-107); Estimated GFR-MDRD Greater than 90
[2017-07-08] MEDS: Folic Acid 1 MG TAB PO SCH (09:06)
[2017-07-08] MEDS: Ferrous Sulfate 325 MG TAB PO SCH ×2 (09:06→18:05)
[2017-07-08] MEDS: Famotidine 20 MG TAB PO SCH ×2 (09:06→22:00)
[2017-07-08] MEDS: Multivitamin W/ Minerals 1 TAB PO SCH (09:06)
--- NOTE | 2017-07-08 11:16 | PDOC.PN ---
- Subjective Encounter Start Date: 07/08/17 Encounter Start Time: 11:14 Subjective: c/o left knee pain and swelling - Objective MAR Reviewed: Yes Vital Signs & Weight: Vital Signs (12 hours) Temp Pulse Resp BP Pulse Ox 07/08/17 08:00 98.4 F 77 18 112/71 93 L Weight Admit Weight 204 lb Weight 204 lb 5.896 oz Most Recent Monitor Data Heart Rate from ECG 79 NIBP 126/72 NIBP BP-Mean 83 Respiration from ECG 19 SpO2 94 I&O: 07/07/17 07/08/17 07/09/17 06:59 06:59 06:59 Intake Total 720 580 240 Output Total 550 600 800 Balance 170 -20 -560 Result Diagrams: 07/08/17 04:00 07/08/17 04:00 Additional Labs: Microbiology 07/02/17 19:55 Urine clean catch Urine Culture - Final NO GROWTH AT 48 HOURS 07/02/17 16:20 Spinal Fluid Culture - Pending Body Fluid Culture - Final Streptococcus pneumoniae 07/02/17 15:05 Venous blood - Left Arm Blood Culture - Final Streptococcus pneumoniae 07/02/17 14:25 Venous blood - Left Hand Blood Culture - Final Streptococcus pneumoniae 07/07/17 04:43 Venous blood - Right Hand Blood Culture - Preliminary Specimen has been received and culture in progress. No Growth to date. 07/07/17 04:43 Venous blood - Right Arm Blood Culture - Preliminary Specimen has been received and culture in progress. No Growth to date. Laboratory Tests 07/02/17 07/02/17 07/02/17 14:25 14:25 16:20 Plt Count 69 L Total Bilirubin AST 174 H ALT 77 H Creatine Kinase 1877 H Fluid WBC (Manual) 40 H Fluid RBC (Manual) 110 H Fluid Lymphocytes % 93 Enterovirus RNA (PCR) Hepatitis A IgM Ab Hep Bs Antigen Hep B Core IgM Ab Hepatitis C Antibody HSV I DNA PCR HSV II DNA PCR HIV-1 Antibody (EIA) HIV 1&2 Antigen & Ab 07/02/17 07/02/17 07/03/17 16:20 16:20 03:22 Plt Count Total Bilirubin AST ALT Creatine Kinase 2339 H Fluid WBC (Manual) Fluid RBC (Manual) Fluid Lymphocytes % Enterovirus RNA (PCR) Negative Hepatitis A IgM Ab Hep Bs Antigen Hep B Core IgM Ab Hepatitis C Antibody HSV I DNA PCR Negative HSV II DNA PCR Negative HIV-1 Antibody (EIA) HIV 1&2 Antigen & Ab 07/03/17 07/03/17 07/03/17 03:22 03:22 17:06 Plt Count 47 L Total Bilirubin AST 413 H ALT 206 H Creatine Kinase Fluid WBC (Manual) Fluid RBC (Manual) Fluid Lymphocytes % Enterovirus RNA (PCR) Hepatitis A IgM Ab Hep Bs Antigen Hep B Core IgM Ab Hepatitis C Antibody HSV I DNA PCR HSV II DNA PCR HIV-1 Antibody (EIA) HIV 1&2 Antigen & Ab Reflxed Confirmation H 07/03/17 07/04/17 07/04/17 20:21 04:00 04:00 Plt Count 34 L Total Bilirubin AST ALT Creatine Kinase 892 H Fluid WBC (Manual) Fluid RBC (Manual) Fluid Lymphocytes % Enterovirus RNA (PCR) Hepatitis A IgM Ab Hep Bs Antigen Hep B Core IgM Ab Hepatitis C Antibody HSV I DNA PCR HSV II DNA PCR HIV-1 Antibody (EIA) Positive A HIV 1&2 Antigen & Ab 07/04/17 07/05/17 07/05/17 04:00 03:52 03:52 Plt Count 52 L Total Bilirubin AST 217 H ALT 166 H Creatine Kinase 243 H Fluid WBC (Manual) Fluid RBC (Manual) Fluid Lymphocytes % Enterovirus RNA (PCR) Hepatitis A IgM Ab Hep Bs Antigen Hep B Core IgM Ab Hepatitis C Antibody HSV I DNA PCR HSV II DNA PCR HIV-1 Antibody (EIA) HIV 1&2 Antigen & Ab 07/05/17 07/06/17 07/06/17 03:52 03:54 03:54 Plt Count 88 L Total Bilirubin AST 130 H ALT 130 H Creatine Kinase 78 Fluid WBC (Manual) Fluid RBC (Manual) Fluid Lymphocytes % Enterovirus RNA (PCR) Hepatitis A IgM Ab Hep Bs Antigen Hep B Core IgM Ab Hepatitis C Antibody HSV I DNA PCR HSV II DNA PCR HIV-1 Antibody (EIA) HIV 1&2 Antigen & Ab 07/06/17 07/06/17 07/07/17 03:54 08:38 04:43 Plt Count 139 Total Bilirubin 0.7 AST 77 H ALT 95 H Creatine Kinase Fluid WBC (Manual) Fluid RBC (Manual) Fluid Lymphocytes % Enterovirus RNA (PCR) Hepatitis A IgM Ab Non-Reactive Hep Bs Antigen Non-Reactive Hep B Core IgM Ab Non-Reactive Hepatitis C Antibody Non-Reactive HSV I DNA PCR HSV II DNA PCR HIV-1 Antibody (EIA) HIV 1&2 Antigen & Ab 07/08/17 04:00 Plt Count 226 Total Bilirubin AST ALT Creatine Kinase Fluid WBC (Manual) Fluid RBC (Manual) Fluid Lymphocytes % Enterovirus RNA (PCR) Hepatitis A IgM Ab Hep Bs Antigen Hep B Core IgM Ab Hepatitis C Antibody HSV I DNA PCR HSV II DNA PCR HIV-1 Antibody (EIA) HIV 1&2 Antigen & Ab Radiology Reviewed by me: Yes (Knee xray-joint effusion) Phys Exam - Physical Examination Constitutional: NAD HEENT: PERRLA, moist MMs, sclera anicteric, oral pharynx no lesions Neck: no nodes, no JVD, supple, full ROM Respiratory: no wheezing, no rales, no rhonchi, clear to auscultation bilateral Cardiovascular: RRR, no significant murmur, no rub, gallop Gastrointestinal: soft, non-tender, no distention, positive bowel sounds Musculoskeletal: no edema, pulses present left knee effusion Neurological: non-focal, normal sensation, moves all 4 limbs Psychiatric: normal affect, A&O x 3 Skin: no rash Dx/Plan (1) Sepsis with acute organ dysfunction Code(s): A41.9 - SEPSIS, UNSPECIFIED ORGANISM; R65.20 - SEVERE SEPSIS WITHOUT SEPTIC SHOCK Status: Acute (2) Bacteremia due to Streptococcus pneumoniae Code(s): R78.81 - BACTEREMIA Status: Acute (3) Acute kidney failure Status: Resolved (4) Abnormal LFTs Code(s): R79.89 - OTHER SPECIFIED ABNORMAL FINDINGS OF BLOOD CHEMISTRY Status : Acute Comment: improving (5) Demand ischemia of myocardium Code(s): I24.8 - OTHER FORMS OF ACUTE ISCHEMIC HEART DISEASE Status: Acute (6) Encephalopathy acute Code(s): G93.40 - ENCEPHALOPATHY, UNSPECIFIED Status: Resolved (7) HIV (human immunodeficiency virus infection) Status: Acute Comment: new diagnosis (8) Right acute suppurative otitis media Code(s): H66.001 - ACUTE SUPPR OTITIS MEDIA W/O SPON RUPT EAR DRUM, RIGHT EAR Status: Acute Comment: ENT to see (9) Thrombocytopenia Code(s): D69.6 - THROMBOCYTOPENIA, UNSPECIFIED Status: Acute (10) Rhabdomyolysis Code(s): M62.82 - RHABDOMYOLYSIS Status: Acute Comment: improving - Plan send HIV Viral load and CD4 counts.Pt appears immunocompromised -: may need ABx prophylaxis.Will discuss w ID. -: Renal Fx improved. Platelets improved. LFT better -: on Rocephin for bacteremia -: May need Ortho consult for knee arthrocentesis * . Review of Systems - Review of Systems Constitutional: negative: Fever, Chills, Sweats, Weakness, Malaise, Other Eyes: Pain ENT: Ear Pain, Ear Discharge Respiratory: negative: Cough, Dry, Shortness of Breath, Hemoptysis, SOB with Excertion, Pleuritic Pain, Sputum, Wheezing Cardiovascular: negative: Chest Pain, Palpitations, Orthopnea, Paroxysmal Noc. Dyspnea, Edema, Light Headedness, Other Gastrointestinal: negative: Nausea, Vomiting, Abdominal Pain, Diarrhea, Constipation, Melena, Hematochezia, Other Genitourinary: negative: Dysuria, Frequency, Incontinence, Hematuria, Retention , Other Musculoskeletal: Other. negative: Neck Pain, Shoulder Pain, Arm Pain, Back Pain , Hand Pain, Leg Pain, Foot Pain Neurological: negative: Weakness, Numbness, Incoordination, Change in Speech, Confusion, Seizures, Other - Medications/Allergies Allergies/Adverse Reactions: Allergies Allergy/AdvReac Type Severity Reaction Status Date / Time No Known Drug Allergies Allergy Verified 07/07/17 03:49 Medications: Current Medications Acetaminophen (Tylenol) 650 mg PO Q6H PRN PRN Reason: FEVER > 101 Last Admin: 07/03/17 20:25 Dose: 650 mg Hydrocodone Bitart/Acetaminophen ([place] 5/325) 1 tab PO Q6H PRN PRN Reason: Pain Last Admin: 07/07/17 21:36 Dose: 1 tab Al Hydroxide/Mg Hydroxide (Maalox) 15 ml PO Q4H PRN PRN Reason: Heartburn or Indigestion Artificial Tears (Tears Naturale) 0 drop EA EYE PRN PRN PRN Reason: Dry Eyes Bismuth Subsalicylate (Pepto Bismol) 2 tab PO Q1H PRN PRN Reason: Diarrhea/Loose Stools Famotidine (Pepcid) 20 mg PO BID [facility] Last Admin: 07/08/17 09:06 Dose: 20 mg Ferrous Sulfate (Feosol) 325 mg PO BID[facility] Last Admin: 07/08/17 09:06 Dose: 325 mg Folic Acid (Folvite) 1 mg PO DAILY [facility] Last Admin: 07/08/17 09:06 Dose: 1 mg Guaifenesin (Robitussin Sf) 200 mg PO Q4H PRN PRN Reason: Cough Hydralazine HCl (Apresoline) 10 mg SLOW IVP Q4H PRN PRN Reason: Systolic BP > 180 Ceftriaxone Sodium 2 gm/ (Sodium Chloride) 100 mls @ 200 mls/hr IVPB 0400,1600 [facility] Last Admin: 07/08/17 04:26 Dose: 100 mls Iron/Minerals/Multivitamins (Theragran M) 1 tab PO DAILY [facility] Last Admin: 07/08/17 09:06 Dose: 1 tab Loratadine (Claritin) 10 mg PO DAILYPRN PRN PRN Reason: Sinus Symptoms Magnesium Hydroxide (Milk Of Magnesium) 30 ml PO DAILYPRN PRN PRN Reason: Constipation Mineral Oil/White Petrolatum (Eucerin Cream) 0 gm TOP BIDPRN PRN PRN Reason: Dry Skin Ondansetron HCl (Zofran) 4 mg IVP Q6H PRN PRN Reason: Nausea/Vomiting Last Admin: 07/03/17 08:22 Dose: 4 mg Ondansetron HCl (Zofran Odt) 4 mg PO Q6H PRN PRN Reason: Nausea/Vomiting Phenol (Chloraseptic [place] 180 Ml Bot) 0 ml PO PRN PRN PRN Reason: Sore Throat Senna (Senokot) 2 tab PO HSPRN PRN PRN Reason: Constipation Sodium Chloride (Flush - Normal Saline) 10 ml IVF Q12HR [facility] Last Admin: 07/08/17 09:07 Dose: 10 ml Sodium Chloride (Flush - Normal Saline) 10 ml IVF PRN PRN PRN Reason: Saline Flush Sodium Chloride ([place] Nasal [place] 0.65%) 0 ml EA NARE QIDPRN PRN PRN Reason: Nasal Congestion Zolpidem Tartrate (Ambien) 5 mg PO HSPRN PRN PRN Reason: Insomnia
[2017-07-08] MEDS: Ciprofloxacin 0.3 % Oint 3.5 GM TUBE EA EYE SCH ×2 (15:46→22:02)
--- NOTE | 2017-07-08 16:17 | RAD ---
LEFT KNEE FOUR VIEWS: HISTORY: Left knee pain and swelling. . FINDINGS: No fracture, dislocation, or bony destruction is seen. There is a formation in the suprapatellar po uch, suspicious for joint effusion. POS: [place]
[2017-07-08] MEDS ORDERED: Ciprofloxacin 0.3 % Oint 3.5 GM TUBE EA EYE SCH (21:00)
[2017-07-09] MEDS: cefTRIAXone\\ROCEPHIN 2 GM in Sodium Chloride 0.9% 100 ML IVPB SCH (04:30)
[2017-07-09 05:12] LABS: #Eosinphils 0.1 thou/uL (0.0-0.7); #Lymphocytes 2.1 thou/uL (1.20-3.40); #Neutrophils 4.4 thou/uL (1.40-6.50); %Basophils 0.3 % (0.0-1.0); %Lymphocytes 27.8 % (21.0-51.0); %Monocytes 13.4 % (0.0-10.0); Mean Platelet Volume 7.9 fL (7.4-10.4); Red Blood Cell (RBC) Count 3.93 mill/uL (4.70-6.10); White Blood Cell (WBC) Count 7.6 thou/uL (4.8-10.8)
[2017-07-09] MEDS: cefTRIAXone\\ROCEPHIN 2 GM, Admixture Fee 1 EACH in Sodium Chloride 0.9% 100 ML IVPB SCH ×2 (05:19→18:06)
[2017-07-09 05:20] LABS: Anion Gap 10 mmol/L (10-20); BUN (Urea Nitrogen) 13 mg/dL (8.9-20.6); Calc. Creatinine Clearance 138 mL/min (70-130); Calcium 8.5 mg/dL (7.8-10.44); Carbon Dioxide 27 mmol/L (22-29); Chloride 102 mmol/L (98-107); Estimated GFR-MDRD Greater than 90
[2017-07-09] MEDS: Acetaminophen 325 MG TAB PO PRN (05:33)
[2017-07-09] MEDS: Folic Acid 1 MG TAB PO SCH (09:47)
[2017-07-09] MEDS: Multivitamin W/ Minerals 1 TAB PO SCH (09:47)
[2017-07-09] MEDS: Ferrous Sulfate 325 MG TAB PO SCH ×2 (09:48→18:06)
[2017-07-09] MEDS: Ciprofloxacin 0.3 % Oint 3.5 GM TUBE EA EYE SCH ×3 (09:48→21:02)
[2017-07-09] MEDS: Famotidine 20 MG TAB PO SCH ×2 (09:48→21:01)
--- NOTE | 2017-07-09 10:02 | PDOC.PN ---
- Subjective Encounter Start Date: 07/09/17 Encounter Start Time: 10:01 - Objective MAR Reviewed: Yes Vital Signs & Weight: Vital Signs (12 hours) Temp Pulse Resp BP Pulse Ox 07/09/17 08:38 98.9 F 84 16 07/09/17 08:00 98.2 F 67 20 118/71 93 L Weight Admit Weight 204 lb Weight 204 lb 5.896 oz Most Recent Monitor Data Heart Rate from ECG 79 NIBP 126/72 NIBP BP-Mean 83 Respiration from ECG 19 SpO2 94 I&O: 07/08/17 07/09/17 07/10/17 06:59 06:59 06:59 Intake Total 580 1160 Output Total 600 2300 400 Balance -20 -9950 -400 Result Diagrams: 07/09/17 03:55 07/09/17 03:55 Additional Labs: Microbiology 07/02/17 19:55 Urine clean catch Urine Culture - Final NO GROWTH AT 48 HOURS 07/02/17 16:20 Spinal Fluid Culture - Pending Body Fluid Culture - Final Streptococcus pneumoniae 07/02/17 15:05 Venous blood - Left Arm Blood Culture - Final Streptococcus pneumoniae 07/02/17 14:25 Venous blood - Left Hand Blood Culture - Final Streptococcus pneumoniae 07/07/17 04:43 Venous blood - Right Hand Blood Culture - Preliminary Specimen has been received and culture in progress. No Growth to date. 07/07/17 04:43 Venous blood - Right Arm Blood Culture - Preliminary Specimen has been received and culture in progress. No Growth to date. Laboratory Tests 07/02/17 07/02/17 07/02/17 14:25 14:25 17:43 Creatinine 2.63 H Ammonia 35 Troponin I 0.049 H 07/02/17 07/03/17 07/03/17 17:44 00:48 03:22 Creatinine 1.81 H Ammonia Troponin I 0.048 H 0.041 H 07/04/17 07/05/17 07/06/17 04:00 03:52 03:54 Creatinine 1.19 0.99 0.93 Ammonia Troponin I 07/07/17 07/08/17 04:43 04:00 Creatinine 0.87 0.88 Ammonia Troponin I Radiology Reviewed by me: Yes (Knee Xray-left knee effusion) Dx/Plan (1) Sepsis with acute organ dysfunction Code(s): A41.9 - SEPSIS, UNSPECIFIED ORGANISM; R65.20 - SEVERE SEPSIS WITHOUT SEPTIC SHOCK Status: Acute (2) Bacteremia due to Streptococcus pneumoniae Code(s): R78.81 - BACTEREMIA Status: Acute (3) Acute kidney failure Status: Resolved (4) Abnormal LFTs Code(s): R79.89 - OTHER SPECIFIED ABNORMAL FINDINGS OF BLOOD CHEMISTRY Status : Acute Comment: improving (5) Demand ischemia of myocardium Code(s): I24.8 - OTHER FORMS OF ACUTE ISCHEMIC HEART DISEASE Status: Acute (6) Encephalopathy acute Code(s): G93.40 - ENCEPHALOPATHY, UNSPECIFIED Status: Resolved (7) HIV (human immunodeficiency virus infection) Status: Acute Comment: new diagnosis (8) Right acute suppurative otitis media Code(s): H66.001 - ACUTE SUPPR OTITIS MEDIA W/O SPON RUPT EAR DRUM, RIGHT EAR Status: Acute Comment: ENT to see (9) Thrombocytopenia Code(s): D69.6 - THROMBOCYTOPENIA, UNSPECIFIED Status: Acute (10) Rhabdomyolysis Code(s): M62.82 - RHABDOMYOLYSIS Status: Acute Comment: improving - Plan * . Review of Systems - Medications/Allergies Allergies/Adverse Reactions: Allergies Allergy/AdvReac Type Severity Reaction Status Date / Time No Known Drug Allergies Allergy Verified 07/07/17 03:49 Medications: Current Medications Acetaminophen (Tylenol) 650 mg PO Q6H PRN PRN Reason: FEVER > 101 Last Admin: 07/09/17 05:33 Dose: 650 mg Hydrocodone Bitart/Acetaminophen ([place] 5/325) 1 tab PO Q6H PRN PRN Reason: Pain Last Admin: 07/07/17 21:36 Dose: 1 tab Al Hydroxide/Mg Hydroxide (Maalox) 15 ml PO Q4H PRN PRN Reason: Heartburn or Indigestion Artificial Tears (Tears Naturale) 0 drop EA EYE PRN PRN PRN Reason: Dry Eyes Bismuth Subsalicylate (Pepto Bismol) 2 tab PO Q1H PRN PRN Reason: Diarrhea/Loose Stools Ciprofloxacin (Ciloxan 0.3% Ointment) 1 gm EA EYE TID [place] Last Admin: 07/09/17 09:48 Dose: 1 applic Famotidine (Pepcid) 20 mg PO BID [facility] Last Admin: 07/09/17 09:48 Dose: 20 mg Ferrous Sulfate (Feosol) 325 mg PO BID[facility] Last Admin: 07/09/17 09:48 Dose: 325 mg Folic Acid (Folvite) 1 mg PO DAILY [facility] Last Admin: 07/09/17 09:47 Dose: 1 mg Guaifenesin (Robitussin Sf) 200 mg PO Q4H PRN PRN Reason: Cough Hydralazine HCl (Apresoline) 10 mg SLOW IVP Q4H PRN PRN Reason: Systolic BP > 180 Ceftriaxone Sodium 2 gm/Miscellaneous Medication 1 each/ Sodium Chloride 100 mls @ 200 mls/hr IVPB 0500,1700 [facility] Last Admin: 07/09/17 05:19 Dose: 100 mls Iron/Minerals/Multivitamins (Theragran M) 1 tab PO DAILY [facility] Last Admin: 07/09/17 09:47 Dose: 1 tab Loratadine (Claritin) 10 mg PO DAILYPRN PRN PRN Reason: Sinus Symptoms Magnesium Hydroxide (Milk Of Magnesium) 30 ml PO DAILYPRN PRN PRN Reason: Constipation Mineral Oil/White Petrolatum (Eucerin Cream) 0 gm TOP BIDPRN PRN PRN Reason: Dry Skin Ondansetron HCl (Zofran) 4 mg IVP Q6H PRN PRN Reason: Nausea/Vomiting Last Admin: 07/03/17 08:22 Dose: 4 mg Ondansetron HCl (Zofran Odt) 4 mg PO Q6H PRN PRN Reason: Nausea/Vomiting Phenol (Chloraseptic [place] 180 Ml Bot) 0 ml PO PRN PRN PRN Reason: Sore Throat Senna (Senokot) 2 tab PO HSPRN PRN PRN Reason: Constipation Sodium Chloride (Flush - Normal Saline) 10 ml IVF Q12HR [facility] Last Admin: 07/09/17 09:49 Dose: 10 ml Sodium Chloride (Flush - Normal Saline) 10 ml IVF PRN PRN PRN Reason: Saline Flush Last Admin: 07/08/17 15:45 Dose: 10 ml Sodium Chloride ([place] Nasal [place] 0.65%) 0 ml EA NARE QIDPRN PRN PRN Reason: Nasal Congestion Zolpidem Tartrate (Ambien) 5 mg PO HSPRN PRN PRN Reason: Insomnia
[2017-07-09 13:17] LABS: Absolute CD4 410 /uL (359-1519); Lymphocytes/Gated Cell Count 1.9 x10E3/uL (0.7-3.1)
--- NOTE | 2017-07-09 15:53 | PDOC.PN ---
- Subjective Encounter Start Date: 07/09/17 Encounter Start Time: 15:50 Subjective: feels much better today.walked around in the room w less pain in knee -: no fever/chills - Objective MAR Reviewed: Yes Vital Signs & Weight: Vital Signs (12 hours) Temp Pulse Resp BP Pulse Ox 07/09/17 08:38 98.9 F 84 16 07/09/17 08:00 98.2 F 67 20 118/71 93 L Weight Admit Weight 204 lb Weight 204 lb 5.896 oz Most Recent Monitor Data Heart Rate from ECG 79 NIBP 126/72 NIBP BP-Mean 83 Respiration from ECG 19 SpO2 94 I&O: 07/08/17 07/09/17 07/10/17 06:59 06:59 06:59 Intake Total 580 1160 600 Output Total 600 2300 400 Balance -20 -1140 200 Result Diagrams: 07/09/17 03:55 07/09/17 03:55 Additional Labs: Microbiology 07/02/17 19:55 Urine clean catch Urine Culture - Final NO GROWTH AT 48 HOURS 07/02/17 16:20 Spinal Fluid Culture - Pending Body Fluid Culture - Final Streptococcus pneumoniae 07/02/17 15:05 Venous blood - Left Arm Blood Culture - Final Streptococcus pneumoniae 07/02/17 14:25 Venous blood - Left Hand Blood Culture - Final Streptococcus pneumoniae 07/07/17 04:43 Venous blood - Right Hand Blood Culture - Preliminary NO GROWTH AT 48 HOURS 07/07/17 04:43 Venous blood - Right Arm Blood Culture - Preliminary NO GROWTH AT 48 HOURS Phys Exam - Physical Examination Constitutional: NAD HEENT: PERRLA, moist MMs, sclera anicteric, oral pharynx no lesions, 2+ tonsils Neck: no nodes, no JVD, supple, full ROM Respiratory: no wheezing, no rales, no rhonchi, clear to auscultation bilateral Cardiovascular: RRR, no significant murmur Gastrointestinal: soft, non-tender, no distention, positive bowel sounds Musculoskeletal: no edema, pulses present Neurological: non-focal, normal sensation, moves all 4 limbs Psychiatric: normal affect, A&O x 3 Skin: no rash Dx/Plan (1) Sepsis with acute organ dysfunction Code(s): A41.9 - SEPSIS, UNSPECIFIED ORGANISM; R65.20 - SEVERE SEPSIS WITHOUT SEPTIC SHOCK Status: Acute Comment: clinically improved (2) Bacteremia due to Streptococcus pneumoniae Code(s): R78.81 - BACTEREMIA Status: Acute (3) Acute kidney failure Status: Resolved (4) Abnormal LFTs Code(s): R79.89 - OTHER SPECIFIED ABNORMAL FINDINGS OF BLOOD CHEMISTRY Status : Acute Comment: improving (5) Demand ischemia of myocardium Code(s): I24.8 - OTHER FORMS OF ACUTE ISCHEMIC HEART DISEASE Status: Acute (6) Encephalopathy acute Code(s): G93.40 - ENCEPHALOPATHY, UNSPECIFIED Status: Resolved (7) HIV (human immunodeficiency virus infection) Status: Acute Comment: new diagnosis (8) Right acute suppurative otitis media Code(s): H66.001 - ACUTE SUPPR OTITIS MEDIA W/O SPON RUPT EAR DRUM, RIGHT EAR Status: Acute Comment: ENT to see (9) Thrombocytopenia Code(s): D69.6 - THROMBOCYTOPENIA, UNSPECIFIED Status: Acute (10) Rhabdomyolysis Code(s): M62.82 - RHABDOMYOLYSIS Status: Acute Comment: improving (11) Microcytic anemia Code(s): D50.9 - IRON DEFICIENCY ANEMIA, UNSPECIFIED Status: Acute - Plan continue antibiotics, respiratory therapy, incentive spirometry, out of bed/ ambulate, DVT proph w/SCDs Clinically better. appreciate ortho input.no tap needed for knee for now -: Cont Rocephin for now.Final ABx choice per ID. -: awaiting results for CD4,HIV viral load & Genotype.OP f/u. -: may need HH w PT on DC.cont to follow. -: DC in next 24 hours likley.am labs.stable O/W * .Initiate anemia work up.check Iron indices,FA,B12 levels.IV iron if needed. Review of Systems - Review of Systems Constitutional: negative: Fever, Chills, Sweats, Weakness, Malaise, Other Respiratory: negative: Cough, Dry, Shortness of Breath, Hemoptysis, SOB with Excertion, Pleuritic Pain, Sputum, Wheezing Cardiovascular: negative: Chest Pain, Palpitations, Orthopnea, Paroxysmal Noc. Dyspnea, Edema, Light Headedness, Other Gastrointestinal: negative: Nausea, Vomiting, Abdominal Pain, Diarrhea, Constipation, Melena, Hematochezia, Other Genitourinary: negative: Dysuria, Frequency, Incontinence, Hematuria, Retention , Other Skin: negative: Rash, Lesions, Chacorta, Bruising, Other Neurological: negative: Weakness, Numbness, Incoordination, Change in Speech, Confusion, Seizures, Other - Medications/Allergies Allergies/Adverse Reactions: Allergies Allergy/AdvReac Type Severity Reaction Status Date / Time No Known Drug Allergies Allergy Verified 07/07/17 03:49 Medications: Current Medications Acetaminophen (Tylenol) 650 mg PO Q6H PRN PRN Reason: FEVER > 101 Last Admin: 07/09/17 05:33 Dose: 650 mg Hydrocodone Bitart/Acetaminophen ([place] 5/325) 1 tab PO Q6H PRN PRN Reason: Pain Last Admin: 07/07/17 21:36 Dose: 1 tab Al Hydroxide/Mg Hydroxide (Maalox) 15 ml PO Q4H PRN PRN Reason: Heartburn or Indigestion Artificial Tears (Tears Naturale) 0 drop EA EYE PRN PRN PRN Reason: Dry Eyes Bismuth Subsalicylate (Pepto Bismol) 2 tab PO Q1H PRN PRN Reason: Diarrhea/Loose Stools Ciprofloxacin (Ciloxan 0.3% Ointment) 1 gm EA EYE TID [facility] Last Admin: 07/09/17 15:18 Dose: 1 applic Famotidine (Pepcid) 20 mg PO BID [facility] Last Admin: 07/09/17 09:48 Dose: 20 mg Ferrous Sulfate (Feosol) 325 mg PO BID-[facility] Last Admin: 07/09/17 09:48 Dose: 325 mg Folic Acid (Folvite) 1 mg PO DAILY [facility] Last Admin: 07/09/17 09:47 Dose: 1 mg Guaifenesin (Robitussin Sf) 200 mg PO Q4H PRN PRN Reason: Cough Hydralazine HCl (Apresoline) 10 mg SLOW IVP Q4H PRN PRN Reason: Systolic BP > 180 Ceftriaxone Sodium 2 gm/Miscellaneous Medication 1 each/ Sodium Chloride 100 mls @ 200 mls/hr IVPB 0500,1700 [facility] Last Admin: 07/09/17 05:19 Dose: 100 mls Iron/Minerals/Multivitamins (Theragran M) 1 tab PO DAILY [facility] Last Admin: 07/09/17 09:47 Dose: 1 tab Loratadine (Claritin) 10 mg PO DAILYPRN PRN PRN Reason: Sinus Symptoms Magnesium Hydroxide (Milk Of Magnesium) 30 ml PO DAILYPRN PRN PRN Reason: Constipation Mineral Oil/White Petrolatum (Eucerin Cream) 0 gm TOP BIDPRN PRN PRN Reason: Dry Skin Ondansetron HCl (Zofran) 4 mg IVP Q6H PRN PRN Reason: Nausea/Vomiting Last Admin: 07/03/17 08:22 Dose: 4 mg Ondansetron HCl (Zofran Odt) 4 mg PO Q6H PRN PRN Reason: Nausea/Vomiting Phenol (Chloraseptic [place] 180 Ml Bot) 0 ml PO PRN PRN PRN Reason: Sore Throat Senna (Senokot) 2 tab PO HSPRN PRN PRN Reason: Constipation Sodium Chloride (Flush - Normal Saline) 10 ml IVF Q12HR [place] Last Admin: 07/09/17 09:49 Dose: 10 ml Sodium Chloride (Flush - Normal Saline) 10 ml IVF PRN PRN PRN Reason: Saline Flush Last Admin: 07/08/17 15:45 Dose: 10 ml Sodium Chloride ([place] Nasal [place] 0.65%) 0 ml EA NARE QIDPRN PRN PRN Reason: Nasal Congestion Zolpidem Tartrate (Ambien) 5 mg PO HSPRN PRN PRN Reason: Insomnia
[2017-07-09 17:15] LABS: Iron 12 ug/dL (65-175)
[2017-07-10 05:03] LABS: #Eosinphils 0.1 thou/uL (0.0-0.7); #Monocytes 0.9 thou/uL (0.11-0.59); #Neutrophils 5.3 thou/uL (1.40-6.50); %Basophils 0.3 % (0.0-1.0); %Eosinophils 1.5 % (0.0-10.0); %Lymphocytes 23.9 % (21.0-51.0); %Monocytes 10.5 % (0.0-10.0); Hematocrit 29.5 % (42.0-52.0); Mean Platelet Volume 7.3 fL (7.4-10.4); Red Blood Cell (RBC) Count 3.87 mill/uL (4.70-6.10); White Blood Cell (WBC) Count 8.2 thou/uL (4.8-10.8)
[2017-07-10 05:23] LABS: Anion Gap 9 mmol/L (10-20); BUN (Urea Nitrogen) 14 mg/dL (8.9-20.6); Calc. Creatinine Clearance 138 mL/min (70-130); Calcium 8.9 mg/dL (7.8-10.44); Carbon Dioxide 28 mmol/L (22-29); Chloride 101 mmol/L (98-107); Estimated GFR-MDRD Greater than 90
[2017-07-10] MEDS: cefTRIAXone\\ROCEPHIN 2 GM, Admixture Fee 1 EACH in Sodium Chloride 0.9% 100 ML IVPB SCH (05:43)
[2017-07-10] MEDS: Acetaminophen 325 MG TAB PO PRN (05:48)
[2017-07-10 08:25] VITALS: BP 107/68; TEMP 98.3
[2017-07-10] MEDS: HYDROcodone/Acetaminophen 5/325 mg Tablet PO PRN (09:02)
[2017-07-10] MEDS: Famotidine 20 MG TAB PO SCH (09:02)
[2017-07-10] MEDS: Folic Acid 1 MG TAB PO SCH (09:02)
[2017-07-10] MEDS: Ferrous Sulfate 325 MG TAB PO SCH (09:02)
[2017-07-10] MEDS: Multivitamin W/ Minerals 1 TAB PO SCH (09:02)
[2017-07-10] MEDS: Ciprofloxacin 0.3 % Oint 3.5 GM TUBE EA EYE SCH (09:05)
[2017-07-10 11:24] LABS: LOG10 HIV-1 RNA 4.87 (.)
--- NOTE | 2017-07-10 12:14 | DIS ---
DATE OF ADMISSION: 07/02/2017 DATE OF DISCHARGE: 07/10/2017 PRIMARY CARE PHYSICIAN: [facility] call admission. DISCHARGE DISPOSITION: Home. PRIMARY DISCHARGE DIAGNOSES: 1. Sepsis with acute organ dysfunction. 2. Acute kidney failure. 3. Acute encephalopathy, resolved. 4. Bacteremia due to Streptococcus pneumoniae. 5. Demand ischemia of myocardium. 6. Right-sided otitis media coagulopathy. 7. Thrombocytopenia due to sepsis. 8. Rhabdomyolysis. 9. Abnormal liver function test due to sepsis. SECONDARY DISCHARGE DIAGNOSIS: Human immunodeficiency virus infection. PRIMARY PROCEDURE/OPERATION: None. RADIOLOGICAL INVESTIGATION: Abdomen and pelvis CT scan on admission showed no acute abdominal proce ss. Chest x-ray showed no acute cardiopulmonary process. CT brain on admission showed severe parti al opacification of right tympanomastoid cavity. Echocardiography showed normal EF, knee x-ray was negative for any acute process. SIGNIFICANT LABORATORY DATA: WBC 8.2, hemoglobin 9.5, platelets 341. INR 1.7. Sodium 134, potassi um 4.1, BUN 14, creatinine 1.0, calcium 8.9. Folic acid 13. Vitamin B12 647. AST 130, ALT 130, al kaline phosphatase 50. CK 243, albumin 2.7. Urinalysis suggestive of UTI. CSF was unremarkable ot her than WBC 40. CSF culture grew Staphylococcus pneumonia. Blood culture grew Streptococcus pneum oniae. Urine drug screen negative. CD4 count 410, HIV positive. HSV DNA negative. Hepatitis prof ile negative. Repeat blood culture and urine culture negative. DISCHARGE MEDICATIONS: Omnicef 300 mg p.o. b.i.d. for 10 more days, Pepcid 20 mg p.o. b.i.d., fransisca us sulfate 325 mg p.o. b.i.d. for microcytic anemia, folic acid 1 mg p.o. daily, multivitamin 1 tabl et p.o. daily, and Florastor 250 mg p.o. daily. CONTRAINDICATIONS: None. CODE STATUS: FULL CODE. INPATIENT CONSULTANTS: Dr. Morillo was following and consulted while in hospital. Dr. Robertson was cons ulted because the patient stayed in [facility]. Dr. Willem Jones, ENT doctor was consulted while in hosp ital. TEST RESULTS PENDING ON DISCHARGE: None. ALLERGIES: No known drug allergy. DISCHARGE PLAN: Post hospital, the patient will follow up with Dr. Morillo, Dr. Willem Jones and [facility] physician. HOSPITAL COURSE: A 31-year-old male who was admitted by Dr. Tanmay Castillo, please see his H\T\P for further details. This patient was brought to the ER for altered mental status. The patient appeared septic. He had acute kidney failure, rhabdomyolysis, and thrombocytopenia. He was meeting sepsis with acute organ dysfunction. CT brain showed right-sided opacification of tympanomastoid cavity and we suspected suppurativa otit is media. The patient also had lumbar puncture done which showed WBC 40 and subsequently culture grew Streptoc occus pneumoniae. His blood culture was also positive for Streptococcus pneumonia. This patient's x-ray was normal and his source of infection was not clear and Dr. Morillo recommended that this patient might have underlying otitis media that contributed to his bacteremia. We consult ed ENT doctor and they do recommended outpatient follow up with him. While in hospital, initially the patient was given broad spectrum antibiotic therapy. He was initia lly admitted to [facility] and that is why Dr. Robertson saw this patient and upon stabilization, this patient was transferred to medical floor. We continued Rocephin while in hospital. On discharge, we [facility] ed to [facility]. The patient's acute organ dysfunction was resolved. His thrombocytopenia, improved. Kidney failure , improved. Electrolytes corrected. Rhabdomyolysis, improved. His pain is improved. The patient is ambulatory and while in hospital, we also did PT, OT while in hospital. At this point, the patie nt is stabilized medically. This patient already had HIV infection before coming to the hospital as per patient's history. The patient is advised to follow up with above-mentioned consulted for further treatment. The patient is seen and examined at bedside today. Currently all review of systems reviewed with mery noel and negative. DISCHARGE PHYSICAL EXAMINATION: VITAL SIGNS: Currently, temperature 98.3, pulse 76, respiratory rate 18, saturation 93%, blood pres sure 107/68, and weight 204 pounds. GENERAL: The patient is currently alert and awake, no obvious acute distress. HEAD: Normocephalic and atraumatic. LUNGS: Clear to auscultation without any rhonchi or rales. CARDIAC: S1, S2 regular without any murmur. ABDOMEN: Soft and benign. EXTREMITIES: No edema. NEUROLOGIC: Nonfocal examination. Total time spent on discharge day more than 30 minutes.
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
== END 2017-07-10 13:32 | disposition home or self-care (01) | DRG 871 ==
LOC: ERS 13:31 → EDBD 18:16 → CCU 18:16 → T4-A 07-05 13:12
PROVIDERS: ADMIT Hospitalist; ATTEND Hospitalist
DX: A40.3 Sepsis due to Streptococcus pneumoniae (principal); G93.41 Metabolic encephalopathy; B20 Human immunodeficiency virus [HIV] disease; R65.20 Severe sepsis without septic shock; N17.9 Acute kidney failure, unspecified; D69.59 Other secondary thrombocytopenia; I24.8 Other forms of acute ischemic heart disease; M62.82 Rhabdomyolysis; M25.462 Effusion, left knee; H66.001 Acute suppurative otitis media without spontaneous rupture of ear drum, right ear; E86.9 Volume depletion, unspecified; D50.9 Iron deficiency anemia, unspecified; R79.89 Other specified abnormal findings of blood chemistry; R79.1 Abnormal coagulation profile; F17.210 Nicotine dependence, cigarettes, uncomplicated
CPT/HCPCS: 36415; 62270; 70450; 71010; 74176; 80048; 80053; 80074; 80076; 80202; 80306; 81003; 81015; 82140; 82550; 82553; 82607; 82746; 82945; 83540; 83550; 83605; 83880; 84157; 84484; 85025; 85048; 85060; 85610; 85730; 86361; 86701; 86702; 87040; 87070; 87077; 87086; 87149; 87186; 87205; 87255; 87389; 87498; 87529; 87536; 89051; 93005; 93306; 94760; 96361; 96365; 96375; A4216; G8979-GP-CI; J0133; J0696; J1650; J2405; J3370; J7050

== ENCOUNTER 2018-08-14 08:03 | Emergency (ER) | payer SELFPAY ==
--- NOTE | 2018-08-14 08:45 | RAD ---
RADIOGRAPH RIGHT SHOULDER 3 VIEWS: Date: 08/14/18 HISTORY: 33-year-old male with right shoulder pain. FINDINGS: There is no fracture or dislocation. The glenohumeral joint appears normal. No HADD calcification is identified. No high grade DJD of the AC joint. No destructive osseous lesion. IMPRESSION: Negative. POS: CET
== END 2018-08-14 10:20 | disposition home or self-care (01) ==
LOC: ERS 08:03
DX: M25.511 Pain in right shoulder (principal); F17.210 Nicotine dependence, cigarettes, uncomplicated

== ENCOUNTER 2019-05-23 03:06 | Emergency (ER) | payer SELFPAY ==
[2019-05-23] MEDS ORDERED: Lidocaine 1% w/Epinephrine 1:100K 20 ML VIAL ONE (05:31)
[2019-05-23] MEDS ORDERED: cefTRIAXone\\ROCEPHIN 250 MG VIAL ONE (05:52)
--- NOTE | 2019-05-23 08:07 | ULT ---
PRELIMINARY REPORT/[facility]/EMERGENCY AFTER HOURS PROCEDURE: EXAM: US Scrotum and US Duplex Artery and Vein, Scrotum, Complete EXAM DATE/TIME: 05/23/2019 3:52 AM CLINICAL HISTORY: 33 years old, male; Other: Scrotal pain, swelling x 4days TECHNIQUE: Imaging protocol: Real-time ultrasound of the scrotum. Real-time duplex ultrasound scan of the arterial and venous flow of the scrotum with B-mode, color Doppler flow and spectral waveform analysis. Complete exam. COMPARISON: No relevant prior studies available. FINDINGS: Scrotal ultrasound was performed for evaluation of pain. Duplex ultrasound scan with color Doppler fl ow and spectral waveform analysis was also performed for evaluation of testicular blood flow and to rule out torsion. Right Testicle: No acute findings. No mass. Normal duplex of the testicle. No evidence of torsion. Left Testicle: Somewhat hyperemic left testicle could relate to orchitis. No mass. No evidence of torsion. Epididymides: Enlarged and hyperemic left epididymis likely representing epididymitis. Small left appendix epididymis. Anoptimalsitefor Small right epididymal cysts. Scrotum: Bilateral hydroceles, greater on the left. Left scrotal subcutaneous focal hypoechoic heterogeneous lesion measuring up to 3 cm. IMPRESSION: Left epididymitis and possible orchitis. Left scrotal focal lesion may represent abscess. Bilateral hydroceles, greater on the left. No testicular mass or torsion. Thank you for allowing us to participate in the care of your patient. Dictated and Authenticated by: Keo Alvarez MD 05/23/2019 5:13 AM Central Time ([place] & [place]) FINAL REPORT: SCROTAL ULTRASOUND WITH DOPPLER: PROVIDED CLINICAL HISTORY: Scrotal pain and swelling. COMPARISON: None. FINDINGS/IMPRESSION: Agree with the preliminary interpretation given by [facility]. Transcribed Date/Time: 05/23/2019 9:12 AM
== END 2019-05-23 06:30 | disposition home or self-care (01) ==
LOC: ERS 03:06
DX: N45.1 Epididymitis (principal); N49.2 Inflammatory disorders of scrotum; N45.2 Orchitis; F32.9 Major depressive disorder, single episode, unspecified; F17.210 Nicotine dependence, cigarettes, uncomplicated
CPT/HCPCS: 54700; 76870; 93976; 96374; J0696; J2001